=== PATIENT | male | born 2000 | race Caucasian/White ===

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

== ENCOUNTER 2020-12-24 07:45 | Day surgery (SDC) | payer BC ==
[2020-12-18 11:53] VITALS: BMI 25.5
[2020-12-24] MEDS ORDERED: ONDANSETRON 4 MG/2 ML VIAL ONE ×2 (08:37→11:14)
[2020-12-24] MEDS ORDERED: DEXAMETHASONE SOD PHOSPHATE 4 MG/1 ML VIAL ONE ×2 (08:37→11:14)
[2020-12-24] MEDS ORDERED: ceFAZolin SODIUM 1 GM VIAL ONE (08:37)
[2020-12-24] MEDS ORDERED: PROPOFOL 20 ML ONE (08:38)
[2020-12-24] MEDS ORDERED: MIDAZOLAM HCL 2 MG/2 ML SINGLE DOSE VIAL ONE (09:21)
[2020-12-24] MEDS ORDERED: BUPIVACAINE HCL/PF 0.5% (5 MG/ML) 30 ML VIAL IJ ONE (09:22)
[2020-12-24] MEDS ORDERED: BUPIVACAINE LIPOSOME/PF (EXPAREL) 266 MG/20 ML VIAL ONE (09:22)
[2020-12-24] MEDS ORDERED: VANCOMYCIN 1,000 MG VIAL (RESTRICTED TO ID ONLY) ONE (09:58)
[2020-12-24] MEDS ORDERED: TRANEXAMIC ACID 1000 MG/10 ML VIAL ONE ×2 (10:56→11:14)
[2020-12-24] MEDS ORDERED: oxyCODONE HCL 5 MG TABLET PO PRN ×2 (11:30)
[2020-12-24] MEDS ORDERED: LACTATED RINGERS SOLUTION 1,000 ML IV SCH (11:30)
[2020-12-24] MEDS ORDERED: ONDANSETRON 4 MG/2 ML VIAL IVPUSH PRN (11:30)
[2020-12-24 15:05] VITALS: TEMP 98.4
[2020-12-24 15:08] VITALS: BP 117/61; PULSE 78
== END 2020-12-24 14:55 | disposition home or self-care (01) ==
LOC: FASU 07:45
PROVIDERS: ATTEND Orthopaedic Surgery
PROC: 0SQC4ZZ Repair Right Knee Joint, Percutaneous Endoscopic Approach (ICD-10-PCS; 2020-12-24)
PROC: 0MRN47Z Replacement of Right Knee Bursa and Ligament with Autologous Tissue Substitute, Percutaneous Endoscopic Approach (ICD-10-PCS; principal; 2020-12-24 11:12)
PROC: 0LBQ0ZZ Excision of Right Knee Tendon, Open Approach (ICD-10-PCS; 2020-12-24 11:12)
DX: S83.511A Sprain of anterior cruciate ligament of right knee, initial encounter (principal); S83.241A Other tear of medial meniscus, current injury, right knee, initial encounter; X58.XXXA Exposure to other specified factors, initial encounter; Y93.9 Activity, unspecified; Y92.9 Unspecified place or not applicable
CPT/HCPCS: 29882; 29888; C1713; 94760; 97116-GP

== ENCOUNTER 2022-03-03 07:47 | Day surgery (SDC) | payer BC ==
[2022-02-22 18:17] VITALS: BMI 24.3
[~2022-03-03 07:47] MED LIST: EPINEPHrine 1:1,000 1,000 MCG/ML ML ONE; VANCOMYCIN 1,000 MG VIAL (RESTRICTED TO ID ONLY) ONE
[2022-03-03] MEDS ORDERED: PROPOFOL 20 ML ONE (08:23)
[2022-03-03] MEDS ORDERED: DEXAMETHASONE SOD PHOSPHATE 4 MG/1 ML VIAL ONE ×2 (08:23→13:04)
[2022-03-03] MEDS ORDERED: ONDANSETRON 4 MG/2 ML VIAL ONE ×2 (08:23→13:04)
[2022-03-03] MEDS ORDERED: BUPIVACAINE LIPOSOME/PF (EXPAREL) 266 MG/20 ML VIAL ONE (08:28)
[2022-03-03] MEDS ORDERED: BUPIVACAINE HCL/PF 0.5% (5MG/ML) 10 ML VIAL ONE (08:28)
[2022-03-03] MEDS ORDERED: MIDAZOLAM HCL 2 MG/2 ML SINGLE DOSE VIAL ONE (08:28)
[2022-03-03] MEDS ORDERED: SODIUM CHLORIDE 0.9% P/F 10 ML VIAL IJ ONE (08:29)
[2022-03-03] MEDS ORDERED: ceFAZolin SODIUM 1 GM VIAL ONE ×2 (09:55→13:56)
[2022-03-03] MEDS ORDERED: KETOROLAC TROMETHAMINE 30 MG/1 ML VIAL ONE (13:05)
[2022-03-03] MEDS ORDERED: ONDANSETRON 4 MG/2 ML VIAL IVPUSH PRN (15:15)
[2022-03-03] MEDS ORDERED: ACETAMINOPHEN 1000 MG/100 ML BAG IVPB ONE (15:15)
[2022-03-03] MEDS ORDERED: LACTATED RINGERS SOLUTION 1,000 ML IV SCH (15:15)
[2022-03-03] MEDS ORDERED: oxyCODONE HCL 5 MG TABLET PO PRN ×2 (15:15)
[2022-03-03] MEDS ORDERED: ACETAMINOPHEN INJECTION 100 ML IVPB ONE (15:25)
[2022-03-03] MEDS ORDERED: FENTANYL CITRATE/PF 50 MCG/ML VIAL ONE (15:26)
[2022-03-03] MEDS ORDERED: oxyCODONE HCL 5 MG TABLET ONE (15:40)
[2022-03-03 16:35] VITALS: TEMP 97.7
[2022-03-03 16:38] VITALS: BP 128/71; PULSE 74; RESP 18
== END 2022-03-03 17:05 | disposition home or self-care (01) ==
LOC: FASU 07:47
PROVIDERS: ATTEND Orthopaedic Surgery
PROC: 0SQC4ZZ Repair Right Knee Joint, Percutaneous Endoscopic Approach (ICD-10-PCS; 2022-03-03)
PROC: 0YQF0ZZ Repair Right Knee Region, Open Approach (ICD-10-PCS; 2022-03-03)
PROC: 0MRN47Z Replacement of Right Knee Bursa and Ligament with Autologous Tissue Substitute, Percutaneous Endoscopic Approach (ICD-10-PCS; principal; 2022-03-03 10:18)
DX: S83.511A Sprain of anterior cruciate ligament of right knee, initial encounter (principal); S83.211A Bucket-handle tear of medial meniscus, current injury, right knee, initial encounter; X58.XXXA Exposure to other specified factors, initial encounter; Y93.9 Activity, unspecified; Y92.9 Unspecified place or not applicable
CPT/HCPCS: 27427; 29882; 29888; C1713; 88300-TC; 94760